=== PATIENT | female | born 2005 | race Caucasian/White ===

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

== ENCOUNTER 2024-02-13 08:00 | Day surgery (SDC) | payer OTHER ==
[~2024-02-13 08:00] MED LIST: AMOXICILLIN 8751 TAB PO; ZOFRAN ODT4 MG PO
[2024-02-13] MEDS ORDERED: fentaNYL 50 MCG/ML 2 ML VIAL ONE (16:15)
[2024-02-13] MEDS ORDERED: Ketorolac 30 MG/ML VIAL ONE (16:15)
[2024-02-13] MEDS ORDERED: Lidocaine PF 2% (20 MG/ML) 5 ML VIAL ONE (16:15)
[2024-02-13] MEDS ORDERED: Ondansetron 4 MG/2 ML VIAL ONE (16:15)
== END 2024-02-13 19:00 ==
LOC: LDRO 08:00
DX: O03.4 Incomplete spontaneous abortion without complication (principal); Z3A.10 10 weeks gestation of pregnancy
CPT/HCPCS: J1885; J2405; J2704; J3010

== ENCOUNTER 2024-07-15 21:29 | Emergency (ER) | payer SELFPAY ==
[~2024-07-15] VITALS: Ht 162.6 cm; Wt 59.1 kg
[2024-07-15 21:35] VITALS: TEMP 98.6
[2024-07-15] MEDS ORDERED: Ondansetron 4 MG/2 ML VIAL IV ONE (21:45)
[2024-07-15] MEDS ORDERED: NS 1,000 ML IV ONE (21:45)
[2024-07-15 22:06] LABS: BASO # 0.1 K/mm3 (0.0-0.2); BASO % 0.5 % (0.0-2.0); EOS # 0.2 K/mm3 (0.0-0.7); GRAN # 5.6 K/mm3 (1.4-6.5); GRAN % 59.7 % (42.2-75.2); HEMATOCRIT 42.7 % (37.0-47.0); HEMOGLOBIN 14.1 g/dl (12.5-16.0); LYMPH # 2.8 K/mm3 (1.2-3.4); LYMPH % 30.3 % (20.0-51.0); MEAN CELL VOLUME 79 fl (80.0-100.0); MEAN CORPUSCULAR HEMOGLOBIN 26 pg (27-31); MEAN CORPUSCULAR HGB CONC 33 g/dl (33.0-37.0); MEAN PLATELET VOLUME 9.4 fl (7.4-10.4); MONO # 0.7 K/mm3 (0.1-0.6); MONO % 7.3 % (1.7-9.3); PLATELET COUNT 214 K/mm3 (130-400); RED BLOOD COUNT 5.38 M/mm3 (4.10-5.30); REDCELL DISTRIBUTION WIDTH-CV 17.7 % (11.5-14.5)
[2024-07-15 22:21] LABS: INR 1.1 (0.8-3.0); PROTHROMBIN TIME 12.2 SECONDS (9.7-12.8)
[2024-07-15 22:27] LABS: COLLECTION METHOD CLEAN CATCH
[2024-07-15 22:31] LABS: URINE APPEARANCE CLEAR (CLEAR/HAZY); URINE BLOOD NEGATIVE (NEGATIVE); URINE COLOR YELLOW (YELLOW); URINE GLUCOSE NEGATIVE (NEGATIVE); URINE KETONE NEGATIVE (NEGATIVE); URINE NITRATE NEGATIVE (NEGATIVE); URINE PROTEIN(semi-quant) NEGATIVE (NEGATIVE); URINE UROBILINOGEN 0.2 E.U/dL (0.2-1.0)
[2024-07-15 22:32] LABS: ALBUMIN 4.1 g/dL (3.5-5.0); BILIRUBIN,TOTAL 0.8 mg/dL (0.2-1.2); CALCIUM 10.2 mg/dL (8.4-10.2); CREATININE, serum 0.77 mg/dL (0.57-1.11); POTASSIUM 3.3 mEq/L (3.5-4.5); TOTAL PROTEIN 7.6 g/dl (6.2-8.1)
[2024-07-15] MEDS ORDERED: Morphine 4 MG/ML VIAL IV ONE (23:13)
[2024-07-16 00:33] VITALS: BP 122/70; PULSE 64
[2024-07-16] MEDS ORDERED: NORCO 325 MG-51 TAB PO (09:34)
[2024-07-16] MEDS ORDERED: ULTRAM 50MG TAB50 MG PO (10:33)
== END 2024-07-16 00:33 | disposition home or self-care (01) ==
LOC: COL.ER 21:29
PROVIDERS: Emergency Medicine
DX: O26.891 Other specified pregnancy related conditions, first trimester (principal); R10.31 Right lower quadrant pain; Z3A.01 Less than 8 weeks gestation of pregnancy
CPT/HCPCS: J2270; J2405; J7030

== ENCOUNTER 2024-07-16 09:12 | Emergency (ER) | payer BC ==
[~2024-07-16] VITALS: Ht 162.6 cm; Wt 59.1 kg
[~2024-07-16 09:12] MED LIST changes: -NORCO 325 MG-51 TAB PO; -ULTRAM 50MG TAB50 MG PO
[2024-07-16 09:17] VITALS: TEMP 98.4
[2024-07-16] MEDS ORDERED: NORCO 325 MG-51 TAB PO (09:34)
[2024-07-16 09:44] LABS: BASO % 0.3 % (0.0-2.0); EOS # 0.1 K/mm3 (0.0-0.7); EOS % 1.1 % (0.0-4.0); GRAN # 7.4 K/mm3 (1.4-6.5); GRAN % 71.4 % (42.2-75.2); HEMATOCRIT 42.6 % (37.0-47.0); HEMOGLOBIN 13.8 g/dl (12.5-16.0); LYMPH % 18.9 % (20.0-51.0); MEAN CELL VOLUME 80 fl (80.0-100.0); MEAN CORPUSCULAR HEMOGLOBIN 26 pg (27-31); MEAN CORPUSCULAR HGB CONC 32 g/dl (33.0-37.0); MEAN PLATELET VOLUME 9.5 fl (7.4-10.4); MONO # 0.8 K/mm3 (0.1-0.6); PLATELET COUNT 181 K/mm3 (130-400); REDCELL DISTRIBUTION WIDTH-CV 18.1 % (11.5-14.5)
[2024-07-16] MEDS ORDERED: NS 1,000 ML IV ONE (09:45)
[2024-07-16] MEDS ORDERED: Morphine 4 MG/ML VIAL IV ONE (09:45)
[2024-07-16] MEDS ORDERED: Ondansetron 4 MG/2 ML VIAL IV ONE (09:45)
[2024-07-16] MEDS ORDERED: Ketorolac 30 MG/ML VIAL IV ONE (10:15)
[2024-07-16 10:30] LABS: ALBUMIN 4.1 g/dL (3.5-5.0); BILIRUBIN,TOTAL 1.3 mg/dL (0.2-1.2); C-REACTIVE PROTEIN 1.09 mg/dL (0.00-0.50); CALCIUM 9.8 mg/dL (8.4-10.2); CREATININE, serum 0.73 mg/dL (0.57-1.11); POTASSIUM 3.8 mEq/L (3.5-4.5); TOTAL PROTEIN 7.4 g/dl (6.2-8.1)
[2024-07-16] MEDS ORDERED: ULTRAM 50MG TAB50 MG PO (10:33)
[2024-07-16 11:01] VITALS: BP 96/54; PULSE 65
== END 2024-07-16 11:01 | disposition home or self-care (01) ==
LOC: COL.ER 09:12
PROVIDERS: Emergency Medicine
DX: O26.891 Other specified pregnancy related conditions, first trimester (principal); R10.31 Right lower quadrant pain; Z3A.01 Less than 8 weeks gestation of pregnancy
CPT/HCPCS: J1885; J2270; J2405; J7030

== ENCOUNTER → 2024-07-16 | Outpatient (CLI) | payer BC ==
[~2024-07-16] MED LIST changes: +NORCO 325 MG-51 TAB PO; +ULTRAM 50MG TAB50 MG PO
== END ==
LOC: COL.RAD 05:14
DX: O26.899 Other specified pregnancy related conditions, unspecified trimester (principal)